=== PATIENT | female | born 1980 | race Hispanic/Latino ===

== ENCOUNTER 2017-06-02 17:35 | Outpatient (CLI) | payer BC ==
[2017-06-02 18:06] LABS: #Eosinphils 0.4 thou/uL (0.0-0.7); #Monocytes 0.7 thou/uL (0.11-0.59); %Basophils 0.5 % (0.0-1.0); %Eosinophils 4.2 % (0.0-10.0); %Lymphocytes 32.6 % (21.0-51.0); %Monocytes 7.2 % (0.0-10.0); %Neutrophils 55.6 % (42.0-75.0); Hemoglobin 14.7 g/dL (12.0-16.0); Mean Corpuscular HGB CONC 33.9 g/dL (32.0-36.0); Mean Corpuscular Hemoglobin 30.5 pg (27.0-31.0); Mean Corpuscular Volume 89.9 fl (81.0-99.0); Mean Platelet Volume 8.5 fL (7.4-10.4); Platelet Count 208 thou/uL (130-400); RBC Distribution Width 11.5 % (11.5-14.5); Red Blood Cell (RBC) Count 4.82 mill/uL (4.20-5.40)
[2017-06-02 18:27] LABS: Anion Gap 13 mmol/L (10-20); BUN (Urea Nitrogen) 14 mg/dL (7.0-18.7); Calc. Creatinine Clearance 0 mL/min (70-130); Calcium 9.5 mg/dL (7.8-10.44); Carbon Dioxide 22 mmol/L (22-29); Chloride 107 mmol/L (98-107); Estimated GFR-MDRD Greater than 90; Glucose 94 mg/dL (70-105); Potassium 4.2 mmol/L (3.5-5.1); Sodium 138 mmol/L (136-145)
[2017-06-02 18:35] LABS: BHCG - Serum Negative (NEGATIVE); Pregs Control Background? CLEAR/WHITE (CLR/WHITE); Pregs Control Bar Appear? YES (CONTROL BAR)
== END 2017-06-02 17:36 | disposition home or self-care (01) ==
LOC: LABBT 17:35
PROVIDERS: ATTEND Orthopaedic Surgery Hand Surgery
DX: Z01.812 Encounter for preprocedural laboratory examination (principal); G56.01 Carpal tunnel syndrome, right upper limb
CPT/HCPCS: 80048; 84703; 85025

== ENCOUNTER 2017-06-03 06:17 | Day surgery (SDC) | payer BC ==
[2017-06-02 17:36] VITALS: BMI 34.0
[2017-06-03] MEDS ORDERED: Bupivacaine PF 0.5% 30 ML VIAL ONE (06:47)
[2017-06-03] MEDS ORDERED: Betamet Acet/Betamet Na Ph 30 MG/5 ML VIAL ONE (06:47)
[2017-06-03] MEDS ORDERED: Bacitracin Zinc Ointment 30 gm TUBE ONE (06:47)
[2017-06-03] MEDS ORDERED: Fentanyl 100 MCG/2 ML VIAL ONE (06:53)
[2017-06-03] MEDS ORDERED: PROPOFOL 40 ML ONE (07:04)
[2017-06-03] MEDS ORDERED: CEFAZOLIN/Water 2 GM/20 ML SYRINGE ONE (07:20)
[2017-06-03] MEDS ORDERED: Ketorolac Tromethamine 30 MG/ML VIAL ONE (08:36)
[2017-06-03] MEDS ORDERED: PROPOFOL 200 MG/20 ML VIAL ONE (08:51)
[2017-06-03] MEDS ORDERED: HYDROcodone/Acetaminophen 5/325 mg Tablet ONE (08:59)
--- NOTE | 2017-06-03 11:46 | OP ---
DATE OF PROCEDURE: 06/03/2017 PREOPERATIVE DIAGNOSIS: Right carpal tunnel syndrome. POSTOPERATIVE DIAGNOSIS: Right carpal tunnel syndrome. FINDINGS: A very tight transcarpal ligament with stippling over 2 cm area of the median nerve in the carpal canal, but no quite hourglass formation as yet. No fluctuance and tenosynovitis. SURGEON: Lan Elliott M.D. ANESTHESIA: SOFIA - Isaak Osorio, [facility]. COMPLICATIONS: None. ESTIMATED BLOOD LOSS: 5 mL. TOURNIQUET TIME: 14 minutes. INJECTABLES: 10 mL 0.5% Marcaine, amilcar-incisional technique, and drip technique with 3 cm of Celesto ne over the area of the tip of the median nerve within the carpal canal. DESCRIPTION OF PROCEDURE: After successful anesthesia by [facility], Isaak BLACK, the patient had the timeout performed, limb prepped and draped, and then injections with 10 mL 0.5% Bowen elaine. We waited 5 minutes for this to take effect, the limb was exsanguinated, tourniquet inflated to 250 mmHg pressure and then we made a 2.5 cm long incision in line with the ring finger from medial , lateral, and as far distance of line for proximal and 5 mm distal volar wrist flexion crease . This was carried through skin, subcutaneous tissue, and then we identified transcarpal ligament. Using progressive expansion, with a baby Weitlaner and dual , we identified the distal edge of t ranscarpal ligament and began incision in the mid portion of the transcarpal ligament to the distal e dge and identified the nerve branches to include a type 1 takeoff of the motor branch which was intact. We then from the midportion proximally began dissection, visualized transcarpal ligament and with a c ombination of [place] blade and tenotomy scissors completely released this. The nerve was completely free, we saw the stippling of 2 cm with erythema, punctate areas, but no true hourglass formation as of yet. The patient had the flexor tendon inspected. There was no tenosynovitis, thus no tenosynovectomy was indicated. We then placed 3 mL Celestone via drip technique over the median nerve, then released the tourniquet, obtained hemostasis, closed the wound with interrupted 4-0 nylon mattress pattern. Bulky dressing w as applied and the patient left the operating room without complication.
== END 2017-06-03 09:45 | disposition home or self-care (01) ==
LOC: SDC 06:17
PROVIDERS: ATTEND Orthopaedic Surgery Hand Surgery
PROC: 01N50ZZ Release Median Nerve, Open Approach (ICD-10-PCS; principal; 2017-06-03)
DX: G56.01 Carpal tunnel syndrome, right upper limb (principal); E78.5 Hyperlipidemia, unspecified; F90.9 Attention-deficit hyperactivity disorder, unspecified type; Z79.899 Other long term (current) drug therapy; Z97.5 Presence of (intrauterine) contraceptive device
CPT/HCPCS: J0702; J1885; J2704; J3010; S0020

== ENCOUNTER 2020-01-28 10:41 | Outpatient (CLI) | payer BC ==
--- NOTE | 2020-01-28 13:50 | MMO ---
Bilateral MAMMO Bilat Screen [facility]. CLINICAL HISTORY: Patient is 39 years old and is seen for screening. The patient has no family history of breast cancer. The patient has no personal history of cancer. VIEWS: The views performed were: bilateral craniocaudal with tomosynthesis; bilateral mediolateral oblique with tomosynthesis; and bilateral exaggerated craniocaudal. FILMS COMPARED: The present examination has been compared to a prior imaging study performed at [facility] on 04/06/2016. This study has been interpreted with the assistance of computer-aided detection. MAMMOGRAM FINDINGS: The breasts are heterogeneously dense, which could obscure a lesion on mammography. There are no suspicious masses, suspicious calcifications, or new areas of architectural distortion. IMPRESSION: THERE IS NO MAMMOGRAPHIC EVIDENCE OF MALIGNANCY. A ROUTINE FOLLOW-UP MAMMOGRAM IN 1 YEAR IS RECOMMENDED. THE RESULTS OF THIS EXAM WERE SENT TO THE PATIENT. ACR BI-RADS Category 1 - Negative MAMMOGRAPHY NOTE: 1. A negative mammogram report should not delay a biopsy if a dominant of clinically suspicious mass is present. 2. Approximately 10% to 15% of breast cancers are not detected by mammography. 3. Adenosis and dense breasts may obscure an underlying neoplasm. Reported by: SEB ANDERSON MD Electonically Signed: [id number]
== END 2020-01-28 10:42 | disposition home or self-care (01) ==
LOC: BICMAMMO 10:41
PROVIDERS: ATTEND Family Medicine
DX: Z12.31 Encounter for screening mammogram for malignant neoplasm of breast (principal)
CPT/HCPCS: 77063; 77067

== ENCOUNTER 2020-04-01 11:02 | Outpatient (CLI) | payer BC ==
--- NOTE | 2020-04-01 11:51 | MRI ---
MR the lumbar spine without contrast INDICATION: Low back pain and pain with referral into left buttocks COMPARISON: None. TECHNIQUE: Multiplanar multisequence MR images were obtained of lumbar spine without IV contrast. FINDINGS: Bone marrow: Bone marrow signal intensity appears within normal limits. Distal spinal cord and conus: Normal. The conus seen to terminate at T12-L1. Visualized retroperitoneum and paraspinal soft tissues: Normal. Vertebral levels: L5-S1: There is a broad-based disc bulge with a central disc protrusion without appreciable central c anal or neural foraminal narrowing.. L4-5: There is a mild broad-based disc bulge without appreciable central canal or neural foraminal na rrowing. L3-4: No appreciable central canal or neuroforaminal narrowing. L2-3: No appreciable central canal or neuroforaminal narrowing. L1-L2: No appreciable central canal or neuroforaminal narrowing. T12-L1: There is mild facet joint degenerative change at T12-L1. IMPRESSION: 1. Mild lumbar spondylosis without appreciable central canal or neural foraminal narrowing. 2. The spondylosis is most prominent at L5-S1 where there is a broad-based disc bulge with a small ce ntral disc protrusion. There is no appreciable encroachment on the traversing and exiting nerve roots at this level.
== END 2020-04-01 11:03 | disposition home or self-care (01) ==
LOC: TBSIIMAG 11:02
PROVIDERS: ATTEND Family Medicine
DX: M54.5 Low back pain (principal); M47.816 Spondylosis without myelopathy or radiculopathy, lumbar region; M47.817 Spondylosis without myelopathy or radiculopathy, lumbosacral region; M51.27 Other intervertebral disc displacement, lumbosacral region; M51.87 Other intervertebral disc disorders, lumbosacral region
CPT/HCPCS: 72148